=== PATIENT | female | born 1940 | race Caucasian/White ===

== ENCOUNTER 2017-05-19 12:00 | Outpatient (CLI) | payer MEDICARE, BC | END 2017-05-19 12:01 | disposition home or self-care (01) | LOC: BICMAMMO 12:00 | PROVIDERS: ATTEND Family Medicine | DX: Z12.31 Encounter for screening mammogram for malignant neoplasm of breast (principal); R92.1 Mammographic calcification found on diagnostic imaging of breast | CPT/HCPCS: 77063; 77067 ==

== ENCOUNTER 2017-09-09 07:32 | Outpatient (CLI) | payer MEDICARE, BC | END 2017-09-09 07:33 | disposition home or self-care (01) | LOC: BICULT 07:32 | PROVIDERS: ATTEND Family Medicine | DX: R10.9 Unspecified abdominal pain (principal) | CPT/HCPCS: 76700 ==

== ENCOUNTER 2018-01-21 14:42 | Inpatient (IN) | payer MEDICARE, BC ==
[~2018-01-21 14:42] MED LIST: Iopamidol 370 76% 100 ML VIAL ONE
--- NOTE | 2018-01-21 16:31 | RAD ---
PORTABLE AP CHEST RADIOGRAPH: Date: 01-21-18 History: Left sided rib pain after a fall. Altered mental status. Comparison: 04-02-12 FINDINGS: Cardiac silhouette is magnified by projection but stable in size. Pulmonary vasculature is within nor mal limits and the lungs are clear. Post-surgical changes of the cervical spine are noted with post-s urgical changes overlying the right upper quadrant. No other interval change. IMPRESSION: No acute cardiopulmonary process. POS: [facility]
[2018-01-21 16:34] LABS: #Basophils 0.1 thou/uL (0.0-0.2); #Eosinphils 0.1 thou/uL (0.0-0.7); #Lymphocytes 3.1 thou/uL (1.20-3.40); #Monocytes 0.9 thou/uL (0.11-0.59); #Neutrophils 6.7 thou/uL (1.40-6.50); %Basophils 0.7 % (0.0-1.0); %Eosinophils 0.5 % (0.0-10.0); %Lymphocytes 28.7 % (21.0-51.0); %Neutrophils 62.1 % (42.0-75.0); Hemoglobin 12.3 g/dL (12.0-16.0); Mean Corpuscular HGB CONC 34.3 g/dL (32.0-36.0); Mean Corpuscular Hemoglobin 28.6 pg (27.0-31.0); Mean Corpuscular Volume 83.5 fL (78.0-98.0); Platelet Count 250 thou/uL (130-400); RBC Distribution Width 12.4 % (11.5-14.5); Red Blood Cell (RBC) Count 4.31 mill/uL (4.20-5.40); White Blood Cell (WBC) Count 10.9 thou/uL (4.8-10.8)
[2018-01-21 16:56] LABS: ALT (SGPT) 68 U/L (8-55); AST (SGOT) 66 U/L (5-34); Albumin 4.3 g/dL (3.4-4.8); Alkaline Phosphatase 51 U/L (40-150); Anion Gap 17 mmol/L (10-20); BUN (Urea Nitrogen) 15 mg/dL (9.8-20.1); Bilirubin, Total 0.5 mg/dL (0.2-1.2); Calc. Creatinine Clearance 0 mL/min (70-130); Calcium 9.2 mg/dL (7.8-10.44); Carbon Dioxide 18 mmol/L (23-31); Chloride 90 mmol/L (98-107); Estimated GFR-MDRD 62; Globulin 2.8 g/dL (2.4-3.5); Glucose 204 mg/dL (83-110); Potassium 5.1 mmol/L (3.5-5.1); Protein, Total 7.1 g/dL (6.0-8.3); Sodium 120 mmol/L (136-145)
[2018-01-21 17:59] LABS: Bilirubin Small (Negative); Blood, Urine Moderate (Negative); Clarity TURBID (Clear); Glucose, Urine (Dipstick) 500 mg/dL (Negative); Leukocyte Moderate (Negative); Nitrite Negative (Negative); Protein, Urine (Dipstick) Negative (Neg-Trace); Specific Gravity, Urine 1.018 (1.002-1.036)
--- NOTE | 2018-01-21 18:00 | CT ---
CT BRAIN NONCONTRAST: HISTORY: 77-year-old female status post acute head trauma from fall. FINDINGS: There is no midline shift or any other mass effect. There is no evidence of acute intracranial hemor rhage, large cortical infarct, obstructive hydrocephalus, or extraaxial fluid collection. The calvar ium is intact. There is diffuse parenchymal volume loss. There are low attenuation areas in the whi te matter. These are nonspecific, but in a patient of this age, they are probably chronic ischemic w josef matter changes due to microvascular atherosclerosis. IMPRESSION: 1) No acute intracranial findings. 2) Involutional changes and chronic ischemic white matter changes. connie POS: [facility]
[2018-01-21 18:03] LABS: Bacteria/HPF 4+ HPF (None Seen); Hyaline Casts/LPF 0-3 HYALINE CAST LPF (0-3 Hyaline); Pathc Cast-AUWi Flag 0.69 (0-2.49); Squamous Epithelial 0-3 HPF (0-3)
[2018-01-21 18:09] LABS: Yeast-AUWi Flag 626.6 (0-25.0)
[2018-01-21 18:18] LABS: Yeast-All Forms None Seen HPF (None Seen)
[2018-01-21] MEDS ORDERED: cefTRIAXone\\ROCEPHIN 1 GM VIAL ONE (18:49)
--- NOTE | 2018-01-21 20:03 | CT ---
CT OF ABDOMEN AND PELVIS PERFORMED WITH INTRAVENOUS CONTRAST ENHANCEMENT: 01/21/18 HISTORY: Fall with left sided abdominal trauma. The lung bases show some linear scar. Liver shows suggestion of fatty change. The spleen and pancreas regions are unremarkable. The gallbladder has been removed. The right and left adrenal glands are normal. Hypodensity involving the lower pole of the right kidne y is statistically most likely a tiny subcentimeter cyst. There is no significant periaortic or mesen teric adenopathy. No free fluid is demonstrated within the abdomen. CT OF PELVIS PERFORMED WITH CONTRAST ENHANCEMENT: The appendix region is unremarkable. No free fluid, adenopathy or mass. Review of osseous structures show no signs of any fractures of the bony pelvic ring. Some arthritic c hanges of the spine noted. IMPRESSION: No evidence of any acute intra-abdominal injury. No rib fractures identified. POS: [facility]
[2018-01-21] MEDS ORDERED: Acetaminophen 325 MG TAB PO PRN (20:59)
[2018-01-21] MEDS ORDERED: Ondansetron ODT 4 MG TAB SL PRN (20:59)
[2018-01-21] MEDS ORDERED: Ondansetron PF 4 MG/2 ML Vial IVP PRN (20:59)
[2018-01-21] MEDS ORDERED: HYDROcodone/Acetaminophen 5/325 mg Tablet PO PRN ×2 (20:59)
[2018-01-21] MEDS ORDERED: Sodium Chloride 0.9% 1,000 ML IV SCH (20:59)
[2018-01-21] MEDS ORDERED: Prevnar 13-Val Conj/PF 0.5 ML SYRINGE IM ONE (22:45)
[2018-01-22] MEDS ORDERED: Acetaminophen 325 MG TAB PO PRN (08:14)
[2018-01-22] MEDS ORDERED: Dextrose 50% Abboject 50 ML SYRINGE SLOW IVP PRN (08:14)
[2018-01-22] MEDS ORDERED: Dextrose 5% in Water 1,000 ML IV PRN (08:14)
[2018-01-22] MEDS ORDERED: HYDROcodone/Acetaminophen 5/325 mg Tablet PO PRN (08:14)
[2018-01-22 08:22] LABS: #Basophils 0.1 thou/uL (0.0-0.2); #Eosinphils 0.3 thou/uL (0.0-0.7); #Lymphocytes 3.8 thou/uL (1.20-3.40); %Basophils 0.7 % (0.0-1.0); %Eosinophils 3.1 % (0.0-10.0); %Lymphocytes 41.7 % (21.0-51.0); %Monocytes 11.1 % (0.0-10.0); %Neutrophils 43.4 % (42.0-75.0); Hemoglobin 11.7 g/dL (12.0-16.0); Mean Corpuscular HGB CONC 33.1 g/dL (32.0-36.0); Mean Corpuscular Hemoglobin 27.7 pg (27.0-31.0); Mean Corpuscular Volume 83.7 fL (78.0-98.0); Platelet Count 209 thou/uL (130-400); RBC Distribution Width 12.5 % (11.5-14.5); Red Blood Cell (RBC) Count 4.23 mill/uL (4.20-5.40); White Blood Cell (WBC) Count 9.1 thou/uL (4.8-10.8)
[2018-01-22 08:35] LABS: ALT (SGPT) 76 U/L (8-55); AST (SGOT) 97 U/L (5-34); Alkaline Phosphatase 46 U/L (40-150); Anion Gap 13 mmol/L (10-20); BUN (Urea Nitrogen) 14 mg/dL (9.8-20.1); Bilirubin, Total 0.5 mg/dL (0.2-1.2); Calc. Creatinine Clearance 46 mL/min (70-130); Calcium 9.4 mg/dL (7.8-10.44); Carbon Dioxide 22 mmol/L (23-31); Chloride 98 mmol/L (98-107); Estimated GFR-MDRD 67; Globulin 2.6 g/dL (2.4-3.5); Glucose 75 mg/dL (83-110); Potassium 4.3 mmol/L (3.5-5.1); Protein, Total 6.6 g/dL (6.0-8.3); Sodium 129 mmol/L (136-145)
[2018-01-22] MEDS: Sodium Chloride 0.9% 1,000 ML IV SCH ×2 (09:25→11:30)
[2018-01-22] MEDS: Bupropion 150 MG SR TAB PO SCH (10:23)
[2018-01-22] MEDS: Rosuvastatin 20 MG TAB PO SCH (10:23)
[2018-01-22] MEDS: Famotidine 20 MG TAB PO SCH (10:23)
[2018-01-22] MEDS: Potassium Chloride 10 MEQ TAB PO SCH (10:23)
[2018-01-22] MEDS: Losartan 25 MG TAB PO SCH (10:23)
[2018-01-22] MEDS: Enoxaparin Sodium 40 MG/0.4 ML SYRINGE SC SCH (10:25)
[2018-01-22 10:52] VITALS: BMI 24.6
[2018-01-22] MEDS: Nebivolol HCl 5 MG TAB PO SCH (12:33)
[2018-01-22] MEDS: Insulin Regular 300 UNITS/3 ML VIAL SC PRN (12:43)
--- NOTE | 2018-01-22 14:57 | HP ---
HISTORY OF PRESENT ILLNESS: This is a 77-year-old white female with diabetes, hypertension, hyperlipidemia, who presents with altered mental status. The patient states she has been congested and ill for the past 3 weeks. I recently saw her with her allergies and was given Bactrim for sinusitis. She still complains of congestion. Over the past several days, her appetite has been poor. Two days prior, she fell at [facility] and then yesterday she fell three times hitting her head on the fire place. She then presented to the ER where a CAT scan was done which was negative. She was found to be markedly dehydrated. She states over the past several days she has been eating less and less, however, she has been taking and continues to take all her medicines including her diabetes medicines. IV fluids were initiated. This morning she is feeling remarkably better. She is awake, alert, and conversing. PAST MEDICAL HISTORY: Do not resuscitate, hyperlipidemia, diabetes, hypertension, depression, atherosclerotic cardiovascular disease, sleep apnea, plantar fasciitis. PAST SURGICAL HISTORY: Bilateral tubal ligation, cervical fusion, D and C, basal cell skin cancer, tonsillectomy, hysterectomy, spontaneous vaginal deliveries x2, cholecystectomy, carotid endarterectomy, lumpectomy, bilateral cardiac catheterization with mild CAD in 2009; colonoscopy normal 2011, repeat 10 years; 2012 normal EGD. FAMILY HISTORY: Parents are both . Mother with diabetes. Brother with heart disease. Maternal grandmother with some unknown cancer. SOCIAL HISTORY: She is . She has one son and two daughters. She presently resides by herself. 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 ALLERGIES: ALEVE, TYLENOL NO. 3 AND ASPIRIN. MEDICATIONS: 1. Cholecalciferol 1000 daily. 2. Vascepa 1 gm two capsules with meals twice a day. 3. Losartan 50 daily. 4. Dexilant 60 daily. 5. Hydrochlorothiazide 12.5 daily. 6. Bystolic 2.5 daily. 7. BiPAP 13/19 nightly. 8. Bupropion 150 daily. 9. Crestor 20 mg daily. 10. Metformin 500 two twice a day. 11. Glyburide 5 one b.i.d. REVIEW OF SYSTEMS: As above. PHYSICAL EXAMINATION: VITAL SIGNS: Temperature 96.9, pulse 77, respiration 18, pulse ox 95, blood pressure 121/56. GENERAL: The patient is in no acute distress at this point. She looks well. HEENT: Clear. NECK: Supple. HEART: Regular rate and rhythm. LUNGS: Clear. ABDOMEN: Soft. EXTREMITIES: No edema. LABORATORY DATA: White count 10.9, H and H 12 and 36, this morning 9.1, 11 and 35. Sodium 120 on admission, potassium 5.1. Electrolytes this morning pending. Troponin I less than 0.010. UA with 4 to 6 wbcs and 4+ bacteria. ASSESSMENT: 1. Upper respiratory infection/sinusitis. 2. Urinary tract infection. 3. Altered mental status resolving. 4. Hyponatremia. 5. Dehydration, improving. 6. Diabetes. 7. Hypertension. 8. Hyperlipidemia. PLAN: 1. Fluid restrict to 1200 mL per day. 2. Normal saline 15 mL per hour. 3. Recheck electrolytes this morning. 4. Physical therapy for ambulation. 5. Follow up with cultures. 6. Insulin sliding scale. 7. Resume home meds. 8. Fall precautions. 9. Hopefully, we can rehydrate and advance diet. We will slowly reintroduce her diabetic medications. We will also follow her electrolytes to make sure that her sodium returns normal. I suspect was ill and had a decreased appetite and continued to take all her medicines, and she continue to deteriorate, but this morning, she is doing quite well. Job ID: [id number]
[2018-01-22] MEDS: cefTRIAXone\\ROCEPHIN 1 GM in Sodium Chloride 0.9% 100 ML IVPB SCH (19:32)
[2018-01-22] MEDS: Pramipexole Di-HCl 0.25 MG TAB PO SCH (20:40)
[2018-01-22] MEDS ORDERED: Insulin Regular 300 UNITS/3 ML VIAL SC PRN (21:01)
[2018-01-23 06:09] LABS: #Basophils 0.1 thou/uL (0.0-0.2); #Eosinphils 0.3 thou/uL (0.0-0.7); #Monocytes 0.9 thou/uL (0.11-0.59); #Neutrophils 2.8 thou/uL (1.40-6.50); %Basophils 1.3 % (0.0-1.0); %Eosinophils 4.8 % (0.0-10.0); %Lymphocytes 42.1 % (21.0-51.0); %Monocytes 12.1 % (0.0-10.0); %Neutrophils 39.8 % (42.0-75.0); Hemoglobin 11.4 g/dL (12.0-16.0); Mean Corpuscular Hemoglobin 28.8 pg (27.0-31.0); Mean Corpuscular Volume 84.6 fL (78.0-98.0); Mean Platelet Volume 8.1 fL (7.4-10.4); Platelet Count 203 thou/uL (130-400); RBC Distribution Width 12.6 % (11.5-14.5); Red Blood Cell (RBC) Count 3.97 mill/uL (4.20-5.40); White Blood Cell (WBC) Count 7.1 thou/uL (4.8-10.8)
[2018-01-23 06:36] LABS: Anion Gap 10 mmol/L (10-20); BUN (Urea Nitrogen) 18 mg/dL (9.8-20.1); Calc. Creatinine Clearance 52 mL/min (70-130); Calcium 9.1 mg/dL (7.8-10.44); Carbon Dioxide 25 mmol/L (23-31); Chloride 103 mmol/L (98-107); Estimated GFR-MDRD 77; Glucose 163 mg/dL (83-110); Potassium 4.2 mmol/L (3.5-5.1); Sodium 134 mmol/L (136-145)
[2018-01-23] MEDS: Losartan 25 MG TAB PO SCH (08:23)
[2018-01-23] MEDS: Bupropion 150 MG SR TAB PO SCH (08:23)
[2018-01-23] MEDS: Rosuvastatin 20 MG TAB PO SCH (08:23)
[2018-01-23] MEDS: Nebivolol HCl 5 MG TAB PO SCH (08:24)
[2018-01-23] MEDS: Potassium Chloride 10 MEQ TAB PO SCH (08:24)
[2018-01-23] MEDS: Famotidine 20 MG TAB PO SCH (08:26)
[2018-01-23] MEDS: Enoxaparin Sodium 40 MG/0.4 ML SYRINGE SC SCH (08:28)
[2018-01-23] MEDS: Insulin Regular 300 UNITS/3 ML VIAL SC PRN ×2 (08:35→12:06)
[2018-01-23] MEDS: Sodium Chloride 0.9% 1,000 ML IV SCH (09:58)
--- NOTE | 2018-01-23 12:23 | EKG ---
Test Reason : WEAKNESS Blood Pressure : / mmHG Vent. Rate : 087 BPM Atrial Rate : 087 BPM P-R Int : 200 ms QRS Dur : 070 ms QT Int : 352 ms P-R-T Axes : 058 037 046 degrees QTc Int : 423 ms Normal sinus rhythm Normal ECG Confirmed by DAPHNE GAVIN DO ([id number]), sports editor FARRUKH POWELL ([id number]) on 01/23/2018 12:23:25 PM Referred By: Confirmed By:DAPHNE GAVIN DO
[2018-01-23] MEDS: cefTRIAXone\\ROCEPHIN 1 GM in Sodium Chloride 0.9% 100 ML IVPB SCH (18:27)
[2018-01-23] MEDS: Pramipexole Di-HCl 0.25 MG TAB PO SCH (21:17)
[2018-01-23] MEDS: Cephalexin 250 MG CAP PO SCH (21:17)
--- NOTE | 2018-01-24 00:06 | PRG ---
DATE OF SERVICE: 01/23/2018 HISTORY OF PRESENT ILLNESS: The patient states she feels much better following improvement in sodium and has been on fluid restriction of 1200 mL, has been intaking approximately 1000 however. The patient has been doing well on Rocephin regarding UTI. The patient verbalizes understanding regarding continued free water restrictions going home. The patient remains on IV fluids this morning; we will discontinue and follow the patient's sodium trend. The patient is fine with this plan. LABORATORY DATA: White blood cell count of 7.1 and neutrophils of 39%. Blood glucose range 163 to 228 in last 16 hours, sodium this morning of 134, potassium of 4.2, and creatinine of 0.74. Cultures show in urine E coli of cortes-sensitive. PHYSICAL EXAMINATION: VITAL SIGNS: Blood pressure of 139/60, oxygen saturation of 96% on room air, respiratory rate of 16, pulse of 70, and temperature of 98.0. GENERAL: The patient is alert and oriented, in no acute distress. HEENT: Head is normocephalic and atraumatic. Extraocular movements are intact. Sclerae are clear. Oral mucosa is moist. NECK: Supple. HEART: Regular rate and rhythm. No murmurs are auscultated. LUNGS: Clear to auscultation bilaterally. No rubs or wheezes. ABDOMEN: Soft, nontender, positive bowel sounds throughout. EXTREMITIES: Lower extremities without cyanosis or edema. NEUROLOGIC: The patient is alert and oriented x3. No focal deficits. Speech is normal. ASSESSMENT AND PLAN: Hyponatremia and urinary tract infection. Continue antibiotics, likely deescalate to oral tomorrow morning, rechecking sodium off IV fluids, but on fluid restriction. If the patient remains stable in the morning lab check, likely discharge home. The patient has been able to walk with walking program over 200 feet and feels comfortable with returning home. Job ID: [id number]
[2018-01-24 06:20] LABS: Anion Gap 14 mmol/L (10-20); BUN (Urea Nitrogen) 13 mg/dL (9.8-20.1); Calc. Creatinine Clearance 50 mL/min (70-130); Calcium 9.6 mg/dL (7.8-10.44); Carbon Dioxide 23 mmol/L (23-31); Chloride 99 mmol/L (98-107); Estimated GFR-MDRD 73; Glucose 167 mg/dL (83-110); Potassium 4.3 mmol/L (3.5-5.1); Sodium 132 mmol/L (136-145)
[2018-01-24] MEDS ORDERED: Sodium Chloride 0.9% 10 ML ONE (09:12)
[2018-01-24] MEDS: Insulin Regular 300 UNITS/3 ML VIAL SC PRN (09:50)
[2018-01-24] MEDS: Enoxaparin Sodium 40 MG/0.4 ML SYRINGE SC SCH (09:52)
[2018-01-24] MEDS: Bupropion 150 MG SR TAB PO SCH (09:53)
[2018-01-24] MEDS: Nebivolol HCl 5 MG TAB PO SCH (09:53)
[2018-01-24] MEDS: Cephalexin 250 MG CAP PO SCH (09:53)
[2018-01-24] MEDS: Famotidine 20 MG TAB PO SCH (09:53)
[2018-01-24] MEDS: Potassium Chloride 10 MEQ TAB PO SCH (09:53)
[2018-01-24] MEDS: Rosuvastatin 20 MG TAB PO SCH (09:53)
[2018-01-24] MEDS: Losartan 25 MG TAB PO SCH (09:53)
[2018-01-24 12:35] VITALS: BP 128/58; TEMP 98
--- NOTE | 2018-01-25 23:31 | DIS ---
DATE OF ADMISSION: 01/21/2018 DATE OF DISCHARGE: 01/24/2018 PRIMARY CARE PHYSICIAN: Mick Melvin MD CHIEF COMPLAINT: Weakness and gait instability. HISTORY OF PRESENT ILLNESS: The patient had an increasing weakness and gait instability with fall outside [facility] prior to the admission, found to have hyponatremia along with UTI. The patient has otherwise well-controlled diabetes and hypertension. Urine culture found to have pansensitive E coli. The patient was initially being treated with Bactrim on an outpatient basis for this, was transitioned to Rocephin, and then continued on cephalosporin with Keflex on discharge. The patient was placed on fluid restriction as well as on normal saline, and sodium resolved back to normal low from 120. Following discontinuation of IV fluids, 132 of sodium prior to discharge. walking very well with a walking program over 200 feet. Lives alone, has sister in the area. Will follow up with Dr. Mick Melvin in 1 week for sodium check. DISCHARGE DIET: Diabetic with fluid restriction of free water less than 1500 mL. MEDICATIONS: Continuation of home medications: 1. Rosuvastatin. 2. Potassium chloride. 3. Bystolic. 4. Metformin. 5. Losartan. 6. Glyburide. 7. Bupropion. 8. Keflex 500 mg b.i.d. Hold the patient's hydrochlorothiazide until electrolytes are rechecked. DISCHARGE CONDITION: Good. CONSULTATIONS: No consultations were made. DIAGNOSTIC STUDIES: Brain CT did not show any acute intracranial events. Abdomen and pelvis CT, no injuries including no rib fracture following fall. Job ID: [id number] [facility]
== END 2018-01-24 12:38 | disposition home or self-care (01) | DRG 690 ==
LOC: ERS 14:42 → 2NO 18:20
PROVIDERS: ADMIT Family Medicine; ATTEND Family Medicine
DX: N39.0 Urinary tract infection, site not specified (principal); E87.1 Hypo-osmolality and hyponatremia; E86.0 Dehydration; E11.9 Type 2 diabetes mellitus without complications; I10 Essential (primary) hypertension; E78.5 Hyperlipidemia, unspecified; Z66 Do not resuscitate; J32.9 Chronic sinusitis, unspecified; Z79.84 Long term (current) use of oral hypoglycemic drugs
CPT/HCPCS: 36415; 36416; 70450; 71045; 74177; 80048; 80053; 81003; 81015; 84484; 85025; 87077; 87086; 87186; 93005; J0696; J1650; J1815; J7050

== ENCOUNTER 2018-05-17 21:50 | Emergency (ER) | payer MEDICARE, BC ==
[~2018-05-17 21:50] MED LIST changes: +ISOVUE-370 76%-LOCM 1 ML ONE; -Iopamidol 370 76% 100 ML VIAL ONE
[2018-05-17] MEDS ORDERED: Lidocaine Viscous Sol 2% 15 ml UD Cup ONE (22:54)
[2018-05-17] MEDS ORDERED: Mag-Al 1200 mg/1200 mg/30 ML UDCUP ONE (22:54)
[2018-05-17 23:02] LABS: #Basophils 0.1 thou/uL (0.0-0.2); #Eosinphils 0.2 thou/uL (0.0-0.7); #Monocytes 0.7 thou/uL (0.11-0.59); #Neutrophils 4.1 thou/uL (1.40-6.50); %Eosinophils 2.5 % (0.0-10.0); %Monocytes 7.2 % (0.0-10.0); %Neutrophils 45.3 % (42.0-75.0); Hemoglobin 12.5 g/dL (12.0-16.0); Mean Corpuscular HGB CONC 33.5 g/dL (32.0-36.0); Mean Corpuscular Hemoglobin 28.2 pg (27.0-31.0); Mean Corpuscular Volume 84.1 fL (78.0-98.0); Mean Platelet Volume 7.8 fL (7.4-10.4); Platelet Count 198 thou/uL (130-400); RBC Distribution Width 12.8 % (11.5-14.5); Red Blood Cell (RBC) Count 4.43 mill/uL (4.20-5.40)
[2018-05-17 23:18] LABS: ALT (SGPT) 48 U/L (8-55); AST (SGOT) 34 U/L (5-34); Albumin 4.5 g/dL (3.4-4.8); Alkaline Phosphatase 52 U/L (40-150); Anion Gap 14 mmol/L (10-20); BUN (Urea Nitrogen) 12 mg/dL (9.8-20.1); Bilirubin, Total 0.3 mg/dL (0.2-1.2); CK (CPK) 56 U/L (29-168); Calc. Creatinine Clearance 0 mL/min (70-130); Calcium 10.4 mg/dL (7.8-10.44); Carbon Dioxide 27 mmol/L (23-31); Chloride 99 mmol/L (98-107); Estimated GFR-MDRD 65; Globulin 2.4 g/dL (2.4-3.5); Glucose 141 mg/dL (83-110); Lipase 34 U/L (8-78); Potassium 4.3 mmol/L (3.5-5.1); Protein, Total 6.9 g/dL (6.0-8.3); Sodium 136 mmol/L (136-145)
--- NOTE | 2018-05-17 23:48 | CT ---
FEXAM: CT abdomen and pelvis with IV contrast PROVIDED CLINICAL HISTORY: None COMPARISON: 01/21/2018 FINDINGS: Visualized lung bases are free of significant opacity. The solid abdominal organs demonstrate an unremarkable CT appearance. Changes of prior cholecystectom y are seen. Postoperative changes involving the anterior abdominal wall at the right upper quadrant a gain noted. There is no bowel dilatation, inflammatory fat stranding, free fluid or free air apparent. There is m oderate colonic fecal retention. Occasional vascular calcifications are seen. The osseous structures demonstrate no concerning osteoblastic or osteolytic lesions. IMPRESSION: No evidence for an acute process.
[2018-05-18 00:07] LABS: Bilirubin Negative (Negative); Blood, Urine Negative (Negative); Clarity CLEAR (Clear); Glucose, Urine (Dipstick) Negative (Negative); Leukocyte Negative (Negative); Nitrite Negative (Negative); Protein, Urine (Dipstick) Negative (Neg-Trace); Specific Gravity, Urine 1.013 (1.002-1.036); Urobilinogen 0.2 mg/dL (0.2-1.0); pH, Urine 5.5 (5.0-9.0)
[2018-05-18] MEDS ORDERED: Acetaminophen 325 MG TAB ONE (00:08)
[2018-05-18] MEDS ORDERED: Ondansetron ODT 4 MG TAB ONE (00:08)
== END 2018-05-18 00:34 | disposition home or self-care (01) ==
LOC: ERS 21:50
DX: R10.11 Right upper quadrant pain (principal); R10.31 Right lower quadrant pain; E11.9 Type 2 diabetes mellitus without complications; I10 Essential (primary) hypertension; F41.9 Anxiety disorder, unspecified; F32.9 Major depressive disorder, single episode, unspecified; E78.00 Pure hypercholesterolemia, unspecified; Z79.899 Other long term (current) drug therapy; Z79.84 Long term (current) use of oral hypoglycemic drugs
CPT/HCPCS: 74177; 80053; 81003; 82550; 83690; 83880; 84484; 85025; 93005; 96360; 96361; Q0162; Q9966

== ENCOUNTER 2018-06-22 10:54 | Outpatient (CLI) | payer MEDICARE, BC ==
--- NOTE | 2018-06-22 13:04 | MMO ---
Bilateral MAMMO Bilat Screen [facility]. CLINICAL HISTORY: Patient is 77 years old and is seen for screening. The patient has no family history of breast cancer. The patient has no personal history of cancer. The patient has a history of left Excisional Biopsy in - benign - X 2 and right Excisional Biopsy in - benign. VIEWS: The views performed were: bilateral craniocaudal with tomosynthesis and bilateral mediolateral oblique with tomosynthesis. FILMS COMPARED: The present examination has been compared to prior imaging studies performed at [facility] on 08/01/2011, 08/02/2012, 08/04/2013, 01/15/2016 and 05/19/2017. MAMMOGRAM FINDINGS: The breasts are heterogeneously dense, which could obscure a lesion on mammography. There are stable benign appearing calcifications seen in both breasts. There are no suspicious masses, suspicious calcifications, or new areas of architectural distortion. IMPRESSION: THERE IS NO MAMMOGRAPHIC EVIDENCE OF MALIGNANCY. A ROUTINE FOLLOW-UP MAMMOGRAM IN 1 YEAR IS RECOMMENDED. THE RESULTS OF THIS EXAM WERE SENT TO THE PATIENT. ACR BI-RADS Category 2 - Benign finding MAMMOGRAPHY NOTE: 1. A negative mammogram report should not delay a biopsy if a dominant of clinically suspicious mass is present. 2. Approximately 10% to 15% of breast cancers are not detected by mammography. 3. Adenosis and dense breasts may obscure an underlying neoplasm.
== END 2018-06-22 10:55 | disposition home or self-care (01) ==
LOC: BICMAMMO 10:54
PROVIDERS: ATTEND Family Medicine
DX: Z12.31 Encounter for screening mammogram for malignant neoplasm of breast (principal)
CPT/HCPCS: 77063; 77067

== ENCOUNTER 2020-07-10 19:00 | Outpatient (CLI) | payer MEDICARE, BC | END 2020-07-10 19:01 | disposition home or self-care (01) | LOC: SLEEPLAB 19:00 | PROVIDERS: ATTEND Family Medicine | DX: G47.33 Obstructive sleep apnea (adult) (pediatric) (principal); I10 Essential (primary) hypertension; E11.9 Type 2 diabetes mellitus without complications; R06.83 Snoring; R53.83 Other fatigue | CPT/HCPCS: 95810 ==

== ENCOUNTER 2020-08-18 19:00 | Outpatient (CLI) | payer MEDICARE, BC | END 2020-08-18 19:01 | disposition home or self-care (01) | LOC: SLEEPLAB 19:00 | PROVIDERS: ATTEND Family Medicine | DX: G47.33 Obstructive sleep apnea (adult) (pediatric) (principal); R06.83 Snoring; R53.83 Other fatigue; E11.9 Type 2 diabetes mellitus without complications; I10 Essential (primary) hypertension; G47.10 Hypersomnia, unspecified; E66.9 Obesity, unspecified; Z68.24 Body mass index [BMI] 24.0-24.9, adult | CPT/HCPCS: 95811 ==

== ENCOUNTER 2023-02-17 09:24 | Inpatient (IN) | payer MEDICARE, BC ==
[2023-02-17 09:59] LABS: Hematocrit 43.3 % (36.0-47.0); Hemoglobin 14.2 g/dL (12.0-16.0); Manual Diff?? YES; Mean Corpuscular HGB CONC 32.8 g/dL (32.0-36.0); Mean Corpuscular Hemoglobin 29.3 pg (27.0-31.0); Mean Corpuscular Volume 89.5 fl (78.0-98.0); Mean Platelet Volume 10.6 fL (7.4-10.4); Platelet Count 204 10x3/uL (130-400); RBC Distribution Width 13.8 % (11.5-14.5); Red Blood Cell (RBC) Count 4.84 mill/uL (4.20-5.40); White Blood Cell (WBC) Count 11.9 10x3/uL (4.8-10.8)
[2023-02-17 10:05] LABS: Delete Auto Diff?? YES
[2023-02-17 10:15] LABS: Actual Bicarbonate (HCO3v) 24.9 mEq/L (22-28); Base Excess 1.1 mEq/L (-2.0 to +3.0); Calcium, Ionized (venous) 1.11 mmol/L (1.16-1.32); Chloride (VBG) 98 mmol/L (98-106); Hematocrit-VBG 44 % (36.0-47.0); Hemoglobin (Hb) 14.8 g/dL (11.7-16.1); Potassium (VBG) 5.01 mmol/L (3.70-5.30); Sodium 139 mmol/L (133-146); pH (venous) 7.444 (7.32-7.43)
[2023-02-17 10:24] LABS: ALT (SGPT) 17 U/L (8-55); AST (SGOT) 20 U/L (5-34); Albumin 4.2 g/dL (3.4-4.8); Alkaline Phosphatase 41 U/L (40-110); Anion Gap 18 mmol/L (10-20); BUN (Urea Nitrogen) 17 mg/dL (9.8-20.1); Bilirubin, Total 0.5 mg/dL (0.2-1.2); Calc. Creatinine Clearance 0 mL/min (70-130); Calcium 10.3 mg/dL (7.8-10.44); Carbon Dioxide 25 mmol/L (23-31); Chloride 101 mmol/L (98-107); Estimated GFR 65; Globulin 2.8 g/dL (2.4-3.5); Glucose 100 mg/dL (83-110); Magnesium 1.5 mg/dL (1.6-2.6); Sodium 139 mmol/L (136-145)
[2023-02-17 10:25] LABS: Critical Call Chem-Lactate NUR.JF4@1024
[2023-02-17 10:27] LABS: Troponin I Less than 0.010 ng/mL (< 0.028)
[2023-02-17] MEDS ORDERED: Cefepime 2 GM VIAL ONE (11:02)
[2023-02-17] MEDS ORDERED: Sodium Chloride 0.9% 100 ML ONE (11:02)
[2023-02-17 11:31] LABS: Eosinophils 3 % (0-10); Monocytes 2 % (0-10); Neutrophil 37 % (42-75)
[2023-02-17 11:32] LABS: Lymphocytes 48 % (21-51); Platelet Adequacy Comment Platelets Normal; Reactive Lymphocytes 10 % (0-10)
[2023-02-17 11:52] LABS: Bacteria/HPF None Seen HPF (None Seen); Bilirubin Negative (Negative); Blood, Urine Negative (Negative); CAUTI Indications for Culture Alt mental st,lethar; Clarity Clear (Clear); Glucose, Urine (Dipstick) Greater than 1000 mg/dL (Negative); Ketone, Urine Negative (Negative); Leukocyte 250 Leu/uL (Negative); Nitrite Negative (Negative); Protein, Urine (Dipstick) Negative (Neg-Trace); RBC/HPF 0-3 HPF (0-3); Specific Gravity, Urine 1.021 (1.002-1.036); Urobilinogen Normal mg/dL (Less than 2); pH, Urine 5.5 (5.0-9.0)
[2023-02-17 11:57] LABS: Urine Culture Reflex No No
[2023-02-17] MEDS ORDERED: Bisacodyl 10 MG SUPP PR PRN (12:45)
[2023-02-17] MEDS ORDERED: Acetaminophen 325 MG TAB PO PRN (12:45)
[2023-02-17] MEDS ORDERED: Ondansetron PF 4 MG/2 ML Vial IVP PRN (12:45)
[2023-02-17] MEDS ORDERED: Bisacodyl 5 MG TAB PO PRN (12:45)
[2023-02-17] MEDS ORDERED: Senokot S 8.6-50 MG TAB PO PRN (12:45)
[2023-02-17 12:51] LABS: Lactic Acid 2.1 mmol/L (0.5-2.2)
[2023-02-17] MEDS ORDERED: Glucagon 1 MG/ML KIT IM PRN (12:52)
[2023-02-17] MEDS ORDERED: Dextrose 50% Abboject 50 ML SYRINGE SLOW IVP PRN (12:52)
[2023-02-17] MEDS ORDERED: Dextrose 5% in Water 1,000 ML IV PRN (12:52)
[2023-02-17] MEDS ORDERED: Electrolyte Replacement Protocol 1 EACH FS SCH (13:00)
[2023-02-17 13:25] LABS: Hemoglobin A1c 7.3 % (4.0-6.0)
[2023-02-17 13:47] LABS: Phosphorus 3.3 mg/dL (2.3-4.7)
[2023-02-17 20:19] VITALS: BMI 20.9
[2023-02-17] MEDS ORDERED: Vancomycin 1 GM in Sodium Chloride 0.9% 250 ML 300 ML IVPB SCH (21:00)
[2023-02-17] MEDS ORDERED: Vancomycin 1 GM in Premix 1 BAG IVPB SCH (21:45)
[2023-02-17 23:41] LABS: SARS-CoV-2 NAA Rapid Test Not Detected (NotDetected)
[2023-02-18] MEDS: Cefepime 2 GM in Sodium Chloride 0.9% 100 ML IVPB SCH ×3 (00:20→22:37)
[2023-02-18 04:24] LABS: #Basophils 0.1 thou/uL (0.0-0.2); #Eosinphils 0.2 thou/uL (0.0-0.7); #Monocytes 0.7 thou/uL (0.11-0.59); #Neutrophils 3.1 thou/uL (1.40-6.50); %Basophils 1.1 % (0.0-1.0); %Eosinophils 2.6 % (0.0-10.0); %Lymphocytes 52.2 % (21.0-51.0); %Monocytes 8.2 % (0.0-10.0); %Neutrophils 35.8 % (42.0-75.0); Hematocrit 36.5 % (36.0-47.0); Hemoglobin 12.1 g/dL (12.0-16.0); Mean Corpuscular HGB CONC 33.2 g/dL (32.0-36.0); Mean Corpuscular Hemoglobin 28.9 pg (27.0-31.0); Mean Corpuscular Volume 87.3 fl (78.0-98.0); Mean Platelet Volume 11.1 fL (7.4-10.4); Platelet Count 144 10x3/uL (130-400); RBC Distribution Width 13.8 % (11.5-14.5); Red Blood Cell (RBC) Count 4.18 mill/uL (4.20-5.40); White Blood Cell (WBC) Count 8.6 10x3/uL (4.8-10.8)
[2023-02-18 05:11] LABS: ALT (SGPT) 14 U/L (8-55); AST (SGOT) 16 U/L (5-34); Albumin 3.5 g/dL (3.4-4.8); Alkaline Phosphatase 35 U/L (40-110); Anion Gap 15 mmol/L (10-20); BUN (Urea Nitrogen) 17 mg/dL (9.8-20.1); Bilirubin, Direct 0.2 mg/dL (0.1-0.3); Bilirubin, Total 0.6 mg/dL (0.2-1.2); Calc. Creatinine Clearance 35 mL/min (70-130); Calcium 9.3 mg/dL (7.8-10.44); Carbon Dioxide 24 mmol/L (23-31); Cardiac Risk 3.6 (Less than 4.5); Chloride 104 mmol/L (98-107); Cholesterol 167 mg/dl (< 200 Desired); Estimated GFR 66; Glucose 150 mg/dL (83-110); HDL Cholesterol 46 mg/dL (>60 Neg Risk); LDL Cholesterol, Calculated 91 mg/dL; Magnesium 1.4 mg/dL (1.6-2.6); Potassium 4.2 mmol/L (3.5-5.1); Protein, Total 5.8 g/dL (5.8-8.1); Sodium 139 mmol/L (136-145); Triglycerides 148 mg/dL (Less than 150)
[2023-02-18 05:12] LABS: Phosphorus 3.4 mg/dL (2.3-4.7)
[2023-02-18] MEDS ORDERED: Magnesium Sulfate In Water 4 GM in Premix 1 BAG IVPB SCH (06:00)
[2023-02-18] MEDS ORDERED: Enoxaparin 40 MG (0.4 mL) SYRINGE SC SCH (09:00)
[2023-02-18] MEDS ORDERED: FLU VACC QS2023(65UP)/MF59C/PF 60 MCG/0.5 ML SYRINGE IM ONE (09:00)
[2023-02-18] MEDS: Icosapent Ethyl 1 GM CAPSULE PO SCH (19:51)
[2023-02-18] MEDS ORDERED: Vancomycin HCl 500 MG in Sodium Chloride 0.9% 100 ML IVPB SCH (20:00)
[2023-02-18] MEDS: Carvedilol 6.25 MG TAB PO SCH (20:08)
[2023-02-19 05:41] LABS: #Basophils 0.1 thou/uL (0.0-0.2); #Eosinphils 0.3 thou/uL (0.0-0.7); #Monocytes 0.8 thou/uL (0.11-0.59); #Neutrophils 3.8 thou/uL (1.40-6.50); %Basophils 0.9 % (0.0-1.0); %Eosinophils 3.3 % (0.0-10.0); %Lymphocytes 42.8 % (21.0-51.0); %Monocytes 8.8 % (0.0-10.0); %Neutrophils 44.1 % (42.0-75.0); Hematocrit 36.4 % (36.0-47.0); Hemoglobin 12.3 g/dL (12.0-16.0); Mean Corpuscular HGB CONC 33.8 g/dL (32.0-36.0); Mean Corpuscular Hemoglobin 29.4 pg (27.0-31.0); Mean Corpuscular Volume 87.1 fl (78.0-98.0); Mean Platelet Volume 11.2 fL (7.4-10.4); Platelet Count 161 10x3/uL (130-400); RBC Distribution Width 13.6 % (11.5-14.5); Red Blood Cell (RBC) Count 4.18 mill/uL (4.20-5.40); White Blood Cell (WBC) Count 8.5 10x3/uL (4.8-10.8)
[2023-02-19 06:12] LABS: Anion Gap 11 mmol/L (10-20); BUN (Urea Nitrogen) 19 mg/dL (9.8-20.1); Calc. Creatinine Clearance 36 mL/min (70-130); Calcium 9.1 mg/dL (7.8-10.44); Carbon Dioxide 28 mmol/L (23-31); Chloride 101 mmol/L (98-107); Estimated GFR 67; Glucose 159 mg/dL (83-110); Magnesium 2.2 mg/dL (1.6-2.6); Potassium 4.2 mmol/L (3.5-5.1); Sodium 136 mmol/L (136-145)
[2023-02-19] MEDS ORDERED: Aspirin Chewable 81 MG TAB PO SCH (09:00)
[2023-02-19] MEDS ORDERED: Loratadine 10 MG TAB PO SCH (09:00)
[2023-02-19] MEDS ORDERED: Non-Formulary Item 1 EACH (Losartan [Cozaar] 50 MG Tab) PO SCH (09:00)
[2023-02-19] MEDS ORDERED: Losartan 25 MG TAB PO SCH (09:00)
[2023-02-19] MEDS ORDERED: Hydrochlorothiazide 25 MG TAB PO SCH (09:00)
[2023-02-19] MEDS ORDERED: Empagliflozin 25 MG TAB PO SCH (09:00)
[2023-02-19] MEDS ORDERED: Ezetimibe 10 MG TAB PO SCH (09:00)
[2023-02-19] MEDS ORDERED: Sertraline 25 MG TAB PO SCH (09:00)
[2023-02-19] MEDS: Icosapent Ethyl 1 GM CAPSULE PO SCH (09:24)
[2023-02-19] MEDS: Carvedilol 6.25 MG TAB PO SCH (09:25)
[2023-02-19] MEDS: Cefepime 2 GM in Sodium Chloride 0.9% 100 ML IVPB SCH (09:41)
[2023-02-19 11:48] VITALS: BP 118/51; TEMP 97.5
[2023-02-19] MEDS ORDERED: Cefepime 1 GM in Sodium Chloride 0.9% 100 ML IVPB SCH (23:00)
== END 2023-02-19 12:25 | disposition home health service (06) | DRG 637 ==
LOC: ERS 09:24 → ERHOLD 12:53 → 2SE 19:57 → OBSVTOIN 02-18 15:21
PROVIDERS: ADMIT Family Medicine; ATTEND Internal Medicine
DX: E11.649 Type 2 diabetes mellitus with hypoglycemia without coma (principal); G93.41 Metabolic encephalopathy; N39.0 Urinary tract infection, site not specified; E87.20 Acidosis, unspecified; F03.94 Unspecified dementia, unspecified severity, with anxiety; I10 Essential (primary) hypertension; E78.5 Hyperlipidemia, unspecified; F32.A Depression, unspecified; G47.30 Sleep apnea, unspecified; I25.10 Atherosclerotic heart disease of native coronary artery without angina pectoris; E78.00 Pure hypercholesterolemia, unspecified; F41.9 Anxiety disorder, unspecified; T68.XXXA Hypothermia, initial encounter; E83.42 Hypomagnesemia; Z66 Do not resuscitate; Z11.52 Encounter for screening for COVID-19; Z79.899 Other long term (current) drug therapy; Z88.8 Allergy status to other drugs, medicaments and biological substances; Z79.84 Long term (current) use of oral hypoglycemic drugs; Z98.890 Other specified postprocedural states; Z90.710 Acquired absence of both cervix and uterus; Z90.49 Acquired absence of other specified parts of digestive tract; Z90.89 Acquired absence of other organs
CPT/HCPCS: 0241U; 36415; 36416; 51701; 70450; 71045; 72125; 80048; 80061; 80076; 81001; 82533; 82805; 83036; 83605; 83735; 84100; 84443; 84484; 85025; 86850; 86900; 86901; 87040; 87086; 93005; 96361; 96365; 96367; J0692; J3370; J3370-JW; J3475; J3490

== ENCOUNTER 2023-12-03 12:22 | Outpatient (CLI) | payer MEDICARE, BC | END 2023-12-03 12:23 | disposition home or self-care (01) | LOC: BICMAMMO 12:22 | PROVIDERS: ATTEND Family Medicine | DX: E28.39 Other primary ovarian failure (principal); Z78.0 Asymptomatic menopausal state; M85.89 Other specified disorders of bone density and structure, multiple sites | CPT/HCPCS: 77080 ==